=== PATIENT | female | born 1995 | race African-American/Black ===

== ENCOUNTER 2016-05-31 14:32 | Emergency (ER) | payer MEDICAID ==
[~2016-05-31] VITALS: Ht 170.2 cm; Wt 80.0 kg
[2016-05-31 14:49] VITALS: BP 122/71
== END 2016-05-31 18:59 | disposition home or self-care (01) ==
LOC: ER 14:49
DX: B35.4 Tinea corporis (principal)
CPT/HCPCS: 99282

== ENCOUNTER 2016-08-16 10:58 | Emergency (ER) | payer SELFPAY ==
[~2016-08-16] VITALS: Ht 167.6 cm; Wt 70.0 kg
[2016-08-16 11:28] VITALS: BP 117/75
== END 2016-08-16 12:15 | disposition home or self-care (01) ==
LOC: ER 11:58
DX: B09 Unspecified viral infection characterized by skin and mucous membrane lesions (principal)
CPT/HCPCS: 99282

== ENCOUNTER 2018-10-29 11:08 | Emergency (ER) | payer SELFPAY ==
[~2018-10-29] VITALS: Ht 167.6 cm; Wt 69.0 kg
[2018-10-29] MEDS ORDERED: IBUPROFEN 600MG TABLET PO ONE (13:00)
[2018-10-29 13:27] VITALS: BP 110/77
== END 2018-10-29 13:42 | disposition home or self-care (01) ==
LOC: ER 11:08
DX: R07.89 Other chest pain (principal); R07.81 Pleurodynia; M79.10 Myalgia, unspecified site
CPT/HCPCS: 99282

== ENCOUNTER 2019-08-17 11:52 | Emergency (ER) | payer BC ==
[~2019-08-17] VITALS: Ht 167.6 cm; Wt 65.0 kg
[2019-08-17 12:15] VITALS: BP 102/63
== END 2019-08-17 14:58 | disposition home or self-care (01) ==
LOC: ER 11:52
DX: M54.2 Cervicalgia (principal)
CPT/HCPCS: 81025; 99282

== ENCOUNTER 2019-09-05 11:54 | Emergency (ER) | payer BC ==
[~2019-09-05] VITALS: Ht 167.6 cm; Wt 62.0 kg
[2019-09-05 13:31] LABS: HEMATOCRIT. 40.5 % (36.0-48.0); HEMOGLOBIN. 13.7 g/dL (12.0-16.0); LYMPHOCYTES % 38.5 % (20.0-50.0); MEAN CORPUSCULAR HEMOGLOBIN 30.6 pg (28.0-32.0); MEAN CORPUSCULAR VOLUME 90.4 fL (81.0-99.0); MEAN PLATELET VOLUME 8.6 fl (7.4-10.4); MONOCYTES % 7.7 % (2.0-8.0); NEUTROPHILS % 50.8 % (40.0-76.0); PLATELET 169 x1000/uL (130-400); RED BLOOD CELL COUNT 4.47 mill/uL (4.2-5.4); RED CELL DISTRIBUTION WIDTH 12.3 % (11.6-14.6)
[2019-09-05 13:33] LABS: CHLORIDE 111 mEq/L (98-107)
[2019-09-05 14:32] VITALS: BP 114/70
== END 2019-09-05 14:35 | disposition home or self-care (01) ==
LOC: ER 11:54
DX: R59.0 Localized enlarged lymph nodes (principal); R63.4 Abnormal weight loss; R61 Generalized hyperhidrosis
CPT/HCPCS: 36415; 71046; 80053; 85025; 99284

== ENCOUNTER 2021-10-22 04:39 | Emergency (ER) | payer BC, MEDICAID ==
[~2021-10-22] VITALS: Ht 170.2 cm; Wt 64.0 kg
[2021-10-22] MEDS ORDERED: AMOX1TAB16 PO (05:16)
[2021-10-22] MEDS ORDERED: TOPUD PO (05:16)
[2021-10-22 05:22] VITALS: BP 112/78
== END 2021-10-22 05:23 | disposition home or self-care (01) ==
LOC: ER 04:50
DX: H66.91 Otitis media, unspecified, right ear (principal)
CPT/HCPCS: 81025; 99282